=== PATIENT | female | born 1990 | race American Indian/Alaskan Native ===

== ENCOUNTER 2018-02-19 16:46 | Emergency (ER) | payer OTHER ==
[2018-02-19 17:10] VITALS: BP 124/73
[2018-02-19] MEDS ORDERED: MOTRIN PO ONE (18:44)
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
== END 2018-02-19 20:46 | disposition home or self-care (01) ==
LOC: ED 16:46
DX: S46.912A Strain of unspecified muscle, fascia and tendon at shoulder and upper arm level, left arm, initial encounter (principal); S39.012A Strain of muscle, fascia and tendon of lower back, initial encounter; V49.49XA Driver injured in collision with other motor vehicles in traffic accident, initial encounter; Y93.89 Activity, other specified; Y92.89 Other specified places as the place of occurrence of the external cause; Y99.8 Other external cause status
CPT/HCPCS: 72070; 72100; 99283